=== PATIENT | female | born 1940 | race Caucasian/White ===

== ENCOUNTER 2023-06-14 10:36 | Emergency (ER) | payer MEDICARE, SELFPAY ==
[2023-06-14 10:38] VITALS: BP 160/89; PULSE 112; RESP 18; TEMP 36.6; O2SAT 96; BMI 27.0
--- NOTE | 2023-06-14 11:13 | CT_ITS ---
Patient: TEMO CHONG Facility:?[facility] Patient ID:?[id number] Site Patient ID:?[id number] Site :?[id number] Study:?CT-Chest W/ 95CC ISOVUE-370 PE PROTOCOL-06/14/2023 12:31:20 PM Ordering Physician:Maye Rose Final Report: INDICATION: Back pain. COMPARISON: None available. TECHNIQUE: CT pulmonary angiography with 95 cc of Isovue 370 intravenous contrast. Please note that all CT scans at this facility use dose modulation, iterative reconstruction, and/or weight-based dosing when appropriate to reduce radiation dose to as low as reasonably achievable. FINDINGS: Pulmonary Arterial Vasculature: Opacification of the pulmonary arterial tree is adequate. No intraluminal pulmonary arterial filling defect is identified to indicate a pulmonary embolism. Visualized Lower Neck: No lower cervical adenopathy. Mediastinum: Normal caliber of the thoracoabdominal aorta. No wall thickening or dissection. Minor atherosclerotic mural calcification predominantly involving the abdominal aorta, specifically the branch vessels including the celiac, superior mesenteric and bilateral renal arteries. Moderate atherosclerotic coronary artery calcifications. Trachea and esophagus are normal in appearance. There is no mediastinal lymphadenopathy. Lungs and Pleura: 6 mm mean diameter solid right upper lobe nodule (8; 50). 4 mm juxtapleural right upper lobe ground-glass nodule (8; 70). Benign calcified juxtapleural right lower lobe granuloma (8; 80). No significant pleural effusion. No pneumothorax. Skeleton: No significant osseous findings. Right humeral head suture anchors. 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 Thoracic soft tissues: Unremarkable. No axillary adenopathy. Visualized Upper Abdomen: No significant findings. Incompletely imaged duodenal diverticulum. IMPRESSION: 1. No evidence of pulmonary embolism or other acute cardiopulmonary process. 2. Incidental 6 mm solid right upper lobe nodule for which six-month follow-up chest CT is recommended according to Fleischner guidelines. 3. Additional incidental findings described in the body of the report. Recommendation: 6 month follow-up chest CT. Please note that all CT scans at this facility use dose modulation, iterative reconstruction, and/or weight-based dosing when appropriate to reduce radiation dose to as low as reasonably achievable. Dictated by Jose Carlos Kumar MD @ 06/14/2023 1:28:27 PM Signed by:?Jose Carlos Kumar MD @06/14/2023 1:28:27 PM (Electronic Signature)
[2023-06-14 11:37] LABS: Lactate* 1.5 mmol/L (0.5-1.9)
--- NOTE | 2023-06-14 11:38 | ED_ITS ---
HPI - General Adult General Chief complaint: Shoulder Injury/Pain Stated complaint: L shoulder pain Time Seen by Provider: 06/14/23 11:05 Source: patient Mode of arrival: ambulatory Limitations: no limitations History of Present Illness HPI narrative: 82 year old Female coming in today complaining of back pain that has been present for about 3 weeks. She states that she drove back from [place] any of May and shortly after developed pain right above and medial to her left shoulder blade. She was seen by an orthopedic provider who gave her prednisone Flexeril, this did not help. She states that on the 10 of June she had an MRI done of her neck, she does not have those results back. She states the pain is getting slowly worse every day instead of better. Nothing seems to make it better or worse during the day. She is not short of breath. She denies any swelling of the legs. States that night she has a very hard time sleeping as she cannot find a comfortable position. Her passed out history significant for breast cancer, in remission for the last approximately 4 years. Hyperlipidemia. Her medications were reviewed in the chart. Related Data Home Medications Medication Instructions Recorded Confirmed alendronate 70 mg tablet 70 mg PO 06/14/23 anastrozole 1 mg tablet 1 mg PO DAILY 06/14/23 06/14/23 atorvastatin 20 mg tablet 20 mg PO DAILY 06/14/23 06/14/23 Allergies Allergy/AdvReac Type Severity Reaction Status Date / Time No Known Drug Allergies Allergy Verified 06/14/23 12:24 Review of Systems Status of ROS: Reports: 10 or more systems reviewed and unremarkable except as noted in History and below PFSH PFS Social History Smoking Status: Never smoker Do you use any of these nicotine containing products: None How often do you have a drink containing alcohol: never AUDIT-C Alcohol total score: 0 Exam Narrative: Exam Narrative: Well-nourished well-developed patient in no acute distress. Alert and oriented. Answers questions appropriately. Mood and affect are appropriate. Thoughts are goal oriented and rational. No tangential or magical thinking noted. Patient speaks in full sentences without needing to catch her breath. Tachycardic. HEENT: Normocephalic atraumatic. Pupils are equally round reactive to light. Extraocular muscles are intact. Conjunctivae are moist without any icterus noted. Moist mucous membranes. Cardiovascular: Heart is regular rate and rhythm S1 and S2 are present without any murmurs. Lungs: Clear to auscultation bilaterally no wheezes rhonchi or rales are appreciated. Patient takes deep breaths without any discomfort. Abdomen: Soft and nontender nondistended with normal bowel sounds. Extremities: Bilateral lower extremities are without edema. Normal DP and PT pulses. Skin: Well perfused without any obvious rashes. Back: Normal appearance. I cannot reproduce her pain with palpation. She has full range of motion without pain of the left shoulder. Const: Vital Signs, click to edit/add: Vital Signs - 24 hr 06/14/23 10:38 06/14/23 13:53 06/14/23 14:23 Temperature 97.8 F Pulse Rate [Right Pulse Oximeter] 112 H 103 H 83 Respiratory Rate 18 16 16 Blood Pressure [Ri ght Upper Arm] 160/89 H 167/97 H 163/84 H Pulse Oximetry 96 96 97 Oxygen Delivery Me thod Room Air Course Course ED Course: EKG, read by me, shows sinus tachycardia with a pulse of 103. CBC and chemistries are unremarkable. Given the fact that the patient has had recent travel, has pain that is not getting better with treatment and is tachycardic, we proceeded with a chest CT PE protocol. This did not show any evidence of PE or other lung pathology. She did have a 6 mm lung nodule that will require follow-up. While she was here she received 500 mL of normal saline and 2 mg of IV morphine. This helped her pain. Repeated vital signs after treatment showed that her pulse did come down to 83. Vital Signs Vital signs: Initial Vital Signs Temperature 97.8 F 06/14/23 10:38 Temperature Source Temporal Artery Scan 06/14/23 10:38 Pulse Rate 112 H 06/14/23 10:38 Respiratory Rate 18 06/14/23 10:38 Blood Pressure 160/89 H 06/14/23 10:38 Blood Pressure Mean 112 H 06/14/23 10:38 Blood Pressure Position Sitting 06/14/23 10:38 Pulse Oximetry 96 06/14/23 10:38 Oxygen Delivery Method Room Air 06/14/23 10:38 Vital Signs Temperature 97.8 F 06/14/23 10:38 Pulse Rate 112 H 06/14/23 10:38 Respiratory Rate 18 06/14/23 10:38 Blood Pressure 160/89 H 06/14/23 10:38 Pulse Oximetry 96 06/14/23 10:38 Oxygen Delivery Method Room Air 06/14/23 10:38 Temperature 97.8 F 06/14/23 10:38 Pulse Rate 83 06/14/23 14:23 Respiratory Rate 16 06/14/23 14:23 Blood Pressure 163/84 H 06/14/23 14:23 Pulse Oximetry 97 06/14/23 14:23 Oxygen Delivery Method Room Air 06/14/23 10:38 Medications Administered Medications: Generic Name Dose Route Start Last Admin Trade Name Freq PRN Reason Stop Dose Admin Sodium Chloride 500 mls @ 500 mls/hr 06/14/23 13:37 06/14/23 13:50 0.9 % Sodium Chloride 500 Ml IV 06/14/23 14:36 500 mls/hr .Q1H ONE Administration Discontinued Medications Generic Name Dose Route Start Last Admin Trade Name Freq PRN Reason Stop Dose Admin Morphine Sulfate 2 mg 06/14/23 13:37 06/14/23 13:49 Morphine 2 Mg/Ml Inj IVP 06/14/23 13:38 2 mg ONCE ONE Administration Medical Decision Making MDM Narrative Medical decision making narrative: 82-year-old female with back pain. Will send the patient home with Paradise tablets. She has follow-up already scheduled with Orthopedics to go over her MRI results. May consider physical therapy and follow up with primary care. Lab Data Lab results reviewed: Yes I reviewed the patient's lab results Labs: Lab Results 06/14/23 Range/Units 11:30 WBC 8.81 (4.50-11.00) K/uL RBC 5.33 H (4.00-5.20) m/uL Hgb 15.7 (12.0-16.0) gm/dL Hct 47.8 (33.0-51.0) % MCV 90 (80-100) fL MCH 30 (26-34) pg MCHC 33 (32-36) gm/dL RDW Coeff of Miley 12.5 (11.5-15.5) % Plt Count 213 (140-440) K/uL Neut % (Auto) 68.2 (42.0-72.0) % Lymph % (Auto) 16.7 L (20-44) % [place] % (Auto) 8.6 (0.0-11.0) % Eos % (Auto) 5.4 (0.0-7.0) % Baso % (Auto) 0.5 (0.0-3.0) % Neut # (Auto) 6.01 (1.7-7.0) K/uL Lymph # (Auto) 1.50 (0.90-2.90) K/uL [place] # (Auto) 0.80 (0.00-0.90) K/UL Eos # (Auto) 0.48 (0.00-0.50) K/uL Baso # (Auto) 0.04 (0.00-0.30) K/uL Abs Immat Gran (auto) 0.05 (0.00-0.30) K/uL Imm/Tot Granulo (auto) 0.6 % Sodium 139 (135-149) mmol/L Potassium 4.3 (3.6-5.1) mmol/L Chloride 107 (96-114) mmol/L Carbon Dioxide 27 (20-32) mmol/L Anion Gap 5 L (7-15) mEq/L BUN 22 (7-30) mg/dL Creatinine 0.5 (0.5-1.5) mg/dL Estimated Creat Clear 39.70 Estimated GFR 94 ml/min Glucose 111 (60-115) mg/dL Lactate 1.5 (0.5-1.9) mmol/L Calcium 9.4 (8.4-10.6) mg/dL Troponin I 0.02 (0.01-0.04) ng/mL C-Reactive Protein 1.2 H (0.5-1.0) mg/dL Imaging Data CT scan - chest: Attestation: I have reviewed the pertinent imaging results. Radiologist's impression: Study:?CT-Chest W/ 95CC ISOVUE-370 PE PROTOCOL-06/14/2023 12:31:20 PM Ordering Physician:Maye Rose Final Report: INDICATION: Back pain. COMPARISON: None available. TECHNIQUE: CT pulmonary angiography with 95 cc of Isovue 370 intravenous contrast. Please note that all CT scans at this facility use dose modulation, iterative reconstruction, and/or weight-based dosing when appropriate to reduce radiation dose to as low as reasonably achievable. FINDINGS: Pulmonary Arterial Vasculature: Opacification of the pulmonary arterial tree is adequate. No intraluminal pulmonary arterial filling defect is identified to indicate a pulmonary embolism. Visualized Lower Neck: No lower cervical adenopathy. Mediastinum: Normal caliber of the thoracoabdominal aorta. No wall thickening or dissection. Minor atherosclerotic mural calcification predominantly involving the abdominal aorta, specifically the branch vessels including the celiac, superior mesenteric and bilateral renal arteries. Moderate atherosclerotic coronary artery calcifications. Trachea and esophagus are normal in appearance. There is no mediastinal lymphadenopathy. Lungs and Pleura: 6 mm mean diameter solid right upper lobe nodule (8; 50). 4 mm juxtapleural right upper lobe ground-glass nodule (8; 70). Benign calcified juxtapleural right lower lobe granuloma (8; 80). No significant pleural effusion. No pneumothorax. Skeleton: No significant osseous findings. Right humeral head suture anchors. 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 Thoracic soft tissues: Unremarkable. No axillary adenopathy. Visualized Upper Abdomen: No significant findings. Incompletely imaged duodenal diverticulum. IMPRESSION: 1. No evidence of pulmonary embolism or other acute cardiopulmonary process. 2. Incidental 6 mm solid right upper lobe nodule for which six-month follow-up chest CT is recommended according to Fleischner guidelines. 3. Additional incidental findings described in the body of the report. Recommendation: 6 month follow-up chest CT. ECG Data Attestation: I personally reviewed and interpreted this ECG as follows: Discharge Plan Discharge Clinical Impression: Back pain Patient Disposition: Home, Self-Care Condition: Stable Additional Instructions: You will be sent home with pain medications-take as needed. These medications can cause drowsiness and constipation. Follow-up with your orthopedic physician to discuss results of your MRI and further treatment. You may want to visit with your primary care provider to discuss physical therapy or other modalities to treat your pain. Lastly, your CT scan today did not show any evidence of any blood clots or disease of the lung causing your pain. However, there is a small nodule in the right lung which will require a repeat CT scan to make sure that it is not growing in size. Since I do not have your medical records, I am not sure if this was present in any previous scans that you had. You will be sent home today with report of your CT scan and I recommend you take this to your primary care provider to discuss and to potentially schedule a follow-up scan. Eight tablets of Paradise sent to [facility]. Prescriptions: No Action anastrozole 1 mg tablet 1 mg PO DAILY atorvastatin 20 mg tablet 20 mg PO DAILY alendronate 70 mg tablet 70 mg PO Follow Up/Referrals: Robert Ward MD [Primary Care Provider] - Stand Alone Forms: [employer] Info Instructions
[2023-06-14 11:40] LABS: Basophils Absolute Auto 0.04 K/uL (0.00-0.30); Basophils Percent Auto 0.5 % (0.0-3.0); Eosinophils Absolute Auto 0.48 K/uL (0.00-0.50); Eosinophils Percent Auto 5.4 % (0.0-7.0); Hematocrit 47.8 % (33.0-51.0); Hemoglobin* 15.7 gm/dL (12.0-16.0); Immature Granulocytes Abs Auto 0.05 K/uL (0.00-0.30); Immature Granulocytes Pct Auto 0.6 %; Lymphocytes Percent Auto 16.7 % (20-44); Mean Corpuscular HGB Conc 33 gm/dL (32-36); Mean Corpuscular Hemoglobin 30 pg (26-34); Mean Corpuscular Volume 90 fL (80-100); Monocytes Percent Auto 8.6 % (0.0-11.0); Neutrophils Absolute Auto 6.01 K/uL (1.7-7.0); Neutrophils Percent Auto 68.2 % (42.0-72.0); Platelet Count* 213 K/uL (140-440); RDW Coefficient of Variation % 12.5 % (11.5-15.5); Red Blood Count 5.33 m/uL (4.00-5.20); White Blood Count* 8.81 K/uL (4.50-11.00)
[2023-06-14 11:41] LABS: Slide Review Reflex No
[2023-06-14 11:58] LABS: Chloride* 107 mmol/L (96-114); Potassium* 4.3 mmol/L (3.6-5.1); Sodium* 139 mmol/L (135-149)
[2023-06-14 12:01] LABS: Creatinine* 0.5 mg/dL (0.5-1.5); Estimated Glomerular Filt Rate 94 ml/min
[2023-06-14 12:02] LABS: Anion Gap 5 mEq/L (7-15); Blood Urea Nitrogen* 22 mg/dL (7-30); Calcium* 9.4 mg/dL (8.4-10.6); Carbon Dioxide* 27 mmol/L (20-32); Glucose* 111 mg/dL (60-115)
[2023-06-14 12:05] LABS: C Reactive Protein* 1.2 mg/dL (0.5-1.0)
[2023-06-14 12:14] LABS: Troponin I* 0.02 ng/mL (0.01-0.04)
[2023-06-14] MEDS: MORPHINE 2 MG/ML inj IVP (13:49)
[2023-06-14] MEDS: 0.9 % SODIUM CHLORIDE 500 ML 500 ML IV (13:50)
[2023-06-14 13:53] VITALS: BP 167/97; PULSE 103; RESP 16; O2SAT 96
[2023-06-14 14:23] VITALS: BP 163/84; PULSE 83; RESP 16; O2SAT 97
== END 2023-06-14 14:40 | disposition home or self-care (01) ==
PROVIDERS: Emergency Provider Family Medicine; PCP Family Medicine
DX: M25.512 Pain in left shoulder (principal)
CPT/HCPCS: 36415; 71275; 80048; 83605; 84484; 85025; 86140; 93005; 96374; 99284; J2270; J7030; Q9967